=== PATIENT | female | born 1970 | race Caucasian/White ===

== ENCOUNTER 2023-08-09 08:07 | Outpatient (CLI) | payer OTHER, SELFPAY | END 2023-08-09 08:08 | disposition home or self-care (01) | LOC: NFLDREF 08-11 03:38 | PROVIDERS: PCP Physician Assistant Medical; Referring Provider Physician Assistant Medical; Visit Provider Physician Assistant Medical | DX: Z00.00 Encounter for general adult medical examination without abnormal findings (principal); Z13.6 Encounter for screening for cardiovascular disorders; Z13.29 Encounter for screening for other suspected endocrine disorder; Z13.21 Encounter for screening for nutritional disorder | CPT/HCPCS: 80053; 80061; 84443 ==

== ENCOUNTER 2024-03-20 08:10 | Outpatient (CLI) | payer OTHER, SELFPAY ==
--- NOTE | 2024-03-20 08:15 | CRLHL7_ITS ---
For Patients: As a result of the Century Cures Act, medical imaging exams and procedure reports are released immediately into your electronic medical record. You may view this report before your referring provider. If you have questions, please contact your health care provider. BILATERAL SCREENING MAMMOGRAM WITH COMPUTER-AIDED DETECTION AND TOMOSYNTHESIS TECHNIQUE: CC and MLO views were obtained. These mammographic images have been obtained using full-field digital technique. These mammographic images were interpreted with the benefit of computer-aided detection. Breast Tomosynthesis was used in this interpretation. COMPARISON FILM: 03/18/23, 02/03/22, 01/22/21. FINDINGS: There are scattered areas of fibroglandular density IMPRESSION: There is no radiographic evidence for malignancy. ASSESSMENT: BI-RADS Category 1: Negative RECOMMENDATION: Routine screening mammogram in 1 year. A lay language report of this examination will be provided to the patient. Yevgeniy Lara M.D. Diagnostic Radiologist [email or web address] BETHANY/Dictated by: Yevgeniy Lara MD @ 03/20/2024 10:14:00 AM (Electronically Signed)
== END 2024-03-20 08:11 | disposition home or self-care (01) ==
LOC: MAMMO 08:11
PROVIDERS: PCP Physician Assistant Medical; Visit Provider Physician Assistant Medical
DX: Z12.31 Encounter for screening mammogram for malignant neoplasm of breast (principal)
CPT/HCPCS: 77063; 77067

== ENCOUNTER 2025-04-02 14:58 | Outpatient (CLI) | payer OTHER, SELFPAY ==
--- NOTE | 2025-04-02 15:20 | MM_ITS ---
Patient: JUAN HENDERSON Facility:?[facility] Patient ID:?[id number] Site [id number]:?[id number]. Site :?[id number] Study:?XRay-Breast 3D Aditya SCREENING-04/02/2025 4:02:40 PM Ordering Physician:Marta Acharya Final Report: COMPARISON: 03/20/2024, 03/18/2023, 02/03/2022 TECHNIQUE: Digital mammogram in CC and MLO projections including computer-aided detection (CAD) and tomosynthesis. BREAST COMPOSITION: The breasts are heterogeneously dense, which may obscure small masses. FINDINGS: No suspicious findings. ASSESSMENT: BI-RADS 1 Negative RECOMMENDATION: Annual screening mammogram. A lay language report of this examination will be provided to the patient. Dictated by: Yevgeniy Lara MD @ 04/04/2025 09:34:36 Signed by:?Yevgeniy Lara MD @04/04/2025 9:34:36 AM (Electronic Signature)
--- OUTSIDE RECORDS SUMMARY | 2025-04-03 00:48 | XMS_ITS | Clinical Summary ---
Author Organization [facility] Address [address] [place] [id number] Care Team Providers Care Equipment Application Specialist Name Role Phone Clinic, [facility] Primary Care Provider Allergies No known active allergies Medications levonorgestrel (MIRENA) 20 MCG/24HR IUD 1 each by Intrauterine route once 5 Active loratadine (CLARITIN) 10 MG tablet Take 10 mg by mouth daily Active Multiple Vitamins-Minera ls (MULTIVITAMIN PO) Take by mouth daily Active fish oil-omega-3 fatty acids 1000 MG capsule Take 2 g by mouth daily Active calcium carbonate-vitam in D (OS-KATHLEEN) 500-400 MG-UNIT tablet Take 1 tablet by mouth daily Active Active Problems Problem Noted Date Diagnosed Date Presence of intrauterine contraceptive device Overview (02/19/2016): MIrena 02/21 Immunizations Immunization Administration Dates Next Due [id number] Novel Flu 08/27/2009 Influenza (prior to 2023) 08/27/2009 Influenza Vaccine >6 months,quad, PF 08/31/2017 Family History Medical History Relation Comments Hyperlipidemia Father Hypertension Father Diabetes Maternal Grandfather Heart Disease Maternal Grandfather Hyperlipidemia Maternal Grandfather Hypertension Maternal Grandfather Heart Disease Maternal Grandmother Colon Cancer Mother Hyperlipidemia Mother Hyperlipidemia Paternal Grandmother Hypertension Paternal Grandmother Relation Status Comments Father Maternal Grandfather Maternal Grandmother Mother Paternal Grandmother Social History Tobacco Use Types Packs/Day Years Used Date Smoking Tobacco: Never Smokeless Tobacco: Never Tobacco Cessation:Counseling Given: No Alcohol Use Standard Drinks/Week Comments Yes 0 (1 standard drink = 0.6 oz pur e alcohol) 3-4 drinks per week AUDIT-C Answer Date Recorded Q1: How often do you have a drink containing alc ohol? 2-3 times a week 05/28/2019 Q2: How many drinks containi ng alcohol do you have on a typical day when you are drinking? 1 or 2 05/28/2019 Q3: How often do you have si x or more drinks on one occasion? 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 Gender Identity Not on file Sexual Orientation Not on file Last Filed Vital Signs Vital Sign Reading Time Taken Comments Blood Pressure 120/85 11/27/2019 8:30 AM INT[employer]UAL [employer]GAL ASSISTANT Pulse 68 11/27/2019 8:15 AM [employer]GAL ASSISTANT Temperature 36.2 C (97.1 F) 11/27/2019 8:10 AM INT[employer]UAL [employer] LEGAL ASSISTANT Respiratory Rate 16 11/27/2019 8:30 AM INT[employer]UAL [employer] LEGAL ASSISTANT Oxygen Saturation 100% 11/27/2019 8:30 AM INT[employer]UAL [employer] LEGAL ASSISTANT Inhaled Oxygen Concentration - - Weight 61.1 kg (134 lb 11.2 oz) 11/27/2019 6:12 AM INT[employer]UAL [employer] LEGAL ASSISTANT Height 165.1 cm (5' 5) 11/27/2019 6:12 AM INTEL[employer]UAL [employer]ERTY LEGAL ASSISTANT Body Mass Index 22.42 11/27/2019 6:12 AM INTEL[employer]UAL [employer]ERTY LEGAL ASSISTANT Plan of Treatment Not on file [facility] Care Teams Equipment Application Specialist Relationship Specialty Start Date End Date Clinic, [address] [phone] PCP - General 11/27/19
== END 2025-04-02 14:59 | disposition home or self-care (01) ==
LOC: MAMMO 15:01
PROVIDERS: PCP Physician Assistant Medical; Visit Provider Physician Assistant Medical
DX: Z12.31 Encounter for screening mammogram for malignant neoplasm of breast (principal); R92.333 Mammographic heterogeneous density, bilateral breasts
CPT/HCPCS: 77063; 77067